=== PATIENT | female | born 1975 | race African-American/Black ===

== ENCOUNTER 2016-06-24 17:58 | Emergency (ER) | payer MEDICAID ==
[~2016-06-24] VITALS: Ht 170.2 cm; Wt 74.0 kg
[2016-06-24] MEDS ORDERED: ACETAMINOPHEN 325MG TABLET PO ONE (22:30)
[2016-06-24] MEDS ORDERED: CYCLOBENZAPRINE 10MG TABLET PO ONE (22:30)
[2016-06-24 22:37] LABS: BASOPHILS % 0.7 % (0.0-2.0); EOSINOPHILS % 4.1 % (0.0-5.0); HEMATOCRIT. 40.4 % (36.0-48.0); HEMOGLOBIN. 13.5 g/dL (12.0-16.0); LYMPHOCYTES % 50.3 % (20.0-50.0); MEAN CORPUSCULAR HEMOGLOBIN 29.1 pg (28.0-32.0); MEAN CORPUSCULAR HGB CONC 33.4 g/dL (31.0-37.0); MEAN CORPUSCULAR VOLUME 87.3 fL (81.0-99.0); MEAN PLATELET VOLUME 7.8 fl (7.4-10.4); MONOCYTES % 7.8 % (2.0-8.0); NEUTROPHILS % 37.1 % (40.0-76.0); PLATELET 311 x1000/uL (130-400); RED BLOOD CELL COUNT 4.63 mill/uL (4.2-5.4); RED CELL DISTRIBUTION WIDTH 13.5 % (11.6-14.6)
[2016-06-24 22:45] LABS: INR 1.1; PROTHROMBIN TIME 11.1 sec
[2016-06-24 22:45] LABS: CLARITY URINE CLEAR (CLEAR); COLOR URINE YELLOW (YELLOW); GLUCOSE URINE NEGATIVE (NEGATIVE); KETONES URINE NEGATIVE (NEGATIVE); LEUKOCYTE ESTERASE URINE TRACE (NEGATIVE); NITRITE URINE NEGATIVE (NEGATIVE); OCCULT BLOOD URINE 3+ (NEGATIVE); PH URINE 5.5 (4.5-8.0); PROTEIN URINE NEGATIVE (NEGATIVE); SPECIFIC GRAVITY URINE 1.017 (1.005-1.030); UROBILINOGEN URINE 0.2 E.U./dL (0.2-1.0)
[2016-06-24 22:51] LABS: ALANINE AMINOTRANSFERASE 23 IU/L (13-61); ANION GAP 11; CALCIUM 9.2 mg/dL (8.5-10.1); CARBON DIOXIDE 26 mEq/L (21-32); CHLORIDE 103 mEq/L (98-107); INDEX HEMOLYSI 1 (1-3); INDEX ICTERIC 1 (1-4); INDEX LIPEMIC 1 (1-3); LIPASE 136 IU/L (73-393); UREA NITROGEN BLOOD 9 mg/dL (7-21); eGFR > 60 mL/min (>60)
[2016-06-24 22:57] LABS: RBC URINE 50-100 /hpf (0-2)
[2016-06-24 22:58] LABS: BACTERIA URINE 2+; SQUAMOUS EPITHELIAL CELL URINE 2+ /lpf (RARE/1+)
[2016-06-25 00:25] VITALS: BP 112/70
== END 2016-06-25 00:48 | disposition home or self-care (01) ==
LOC: ER 22:58
DX: N39.0 Urinary tract infection, site not specified (principal); M54.5 Low back pain; M25.552 Pain in left hip; Z98.890 Other specified postprocedural states
CPT/HCPCS: 36415; 71010; 72100; 73502; 80053; 81001; 81025; 83690; 85025; 85610; 99285

== ENCOUNTER 2016-07-30 16:06 | Emergency (ER) | payer MEDICAID ==
[~2016-07-30] VITALS: Ht 172.7 cm; Wt 59.0 kg
[2016-07-30] MEDS ORDERED: SODIUM CHLORIDE 0.9% 1,000 ML IV ONE (21:39)
[2016-07-30] MEDS ORDERED: ACETAMINOPHEN 325MG TABLET PO ONE (21:45)
[2016-07-30] MEDS ORDERED: METOCLOPRAMIDE HCL 10MG/2ML VIAL IV ONE (22:15)
[2016-07-30 22:56] LABS: BASOPHILS % 0.5 % (0.0-2.0); EOSINOPHILS % 0.9 % (0.0-5.0); HEMATOCRIT. 39.8 % (36.0-48.0); HEMOGLOBIN. 13.3 g/dL (12.0-16.0); LYMPHOCYTES % 31.7 % (20.0-50.0); MEAN CORPUSCULAR HEMOGLOBIN 29.3 pg (28.0-32.0); MEAN CORPUSCULAR VOLUME 87.6 fL (81.0-99.0); MEAN PLATELET VOLUME 7.9 fl (7.4-10.4); MONOCYTES % 9.7 % (2.0-8.0); NEUTROPHILS % 57.2 % (40.0-76.0); PLATELET 291 x1000/uL (130-400); RED BLOOD CELL COUNT 4.54 mill/uL (4.2-5.4); RED CELL DISTRIBUTION WIDTH 13.9 % (11.6-14.6)
[2016-07-30 22:59] LABS: CLARITY URINE TURBID (CLEAR); COLOR URINE YELLOW (YELLOW); GLUCOSE URINE NEGATIVE (NEGATIVE); KETONES URINE 3+ (NEGATIVE); LEUKOCYTE ESTERASE URINE 3+ (NEGATIVE); NITRITE URINE NEGATIVE (NEGATIVE); OCCULT BLOOD URINE NEGATIVE (NEGATIVE); PH URINE 5.5 (4.5-8.0); PROTEIN URINE 1+ (NEGATIVE); SPECIFIC GRAVITY URINE 1.035 (1.005-1.030); UROBILINOGEN URINE 0.2 E.U./dL (0.2-1.0)
[2016-07-30 23:00] LABS: CHLORIDE 107 mEq/L (98-107)
[2016-07-30 23:09] LABS: CARBON DIOXIDE 23 mEq/L (21-32)
[2016-07-30] MEDS ORDERED: NITROFURANTOIN 100MG M/M CAPSULE PO ONE (23:15)
[2016-07-31 01:01] VITALS: BP 117/63
== END 2016-07-31 01:04 | disposition home or self-care (01) ==
LOC: ER 23:13
DX: O20.0 Threatened abortion (principal); O23.41 Unspecified infection of urinary tract in pregnancy, first trimester; O21.9 Vomiting of pregnancy, unspecified; Z3A.01 Less than 8 weeks gestation of pregnancy; R10.9 Unspecified abdominal pain; R11.2 Nausea with vomiting, unspecified
CPT/HCPCS: 36415; 76801; 76817; 80053; 81001; 81025; 84702; 85025; 96361; 96374; 99285; J2765; Z7610; J7030

== ENCOUNTER 2020-10-25 21:31 | Emergency (ER) | payer MEDICAID, OTHER ==
[~2020-10-25] VITALS: Ht 157.5 cm; Wt 77.5 kg
[2020-10-25] MEDS ORDERED: VISCOUS LIDOCAINE 2% 15 ML UDC PO STA (23:40)
[2020-10-25] MEDS ORDERED: MAGNESIUM/ALUMINUM HYDROXIDE/SIMETHICONE 30ML UDC PO STA (23:40)
[2020-10-25] MEDS ORDERED: ONDANSETRON 4MG ODT PO STA (23:40)
[2020-10-26 00:03] LABS: CLARITY URINE CLOUDY (CLEAR); COLOR URINE YELLOW (YELLOW); KETONES URINE 4+ (NEGATIVE); LEUKOCYTE ESTERASE URINE 2+ (NEGATIVE); NITRITE URINE NEGATIVE (NEGATIVE); OCCULT BLOOD URINE NEGATIVE (NEGATIVE); PROTEIN URINE TRACE (NEGATIVE); SPECIFIC GRAVITY URINE 1.025 (1.005-1.030); UROBILINOGEN URINE 0.2 E.U./dL (0.2-1.0)
[2020-10-26 00:20] LABS: BASOPHILS % 0.4 % (0.0-2.0); EOSINOPHILS % 1.3 % (0.0-5.0); HEMATOCRIT. 40.5 % (36.0-48.0); HEMOGLOBIN. 13.5 g/dL (12.0-16.0); LYMPHOCYTES % 26.7 % (20.0-50.0); MEAN CORPUSCULAR HEMOGLOBIN 27.7 pg (28.0-32.0); MEAN CORPUSCULAR VOLUME 83.3 fL (81.0-99.0); MEAN PLATELET VOLUME 7.9 fl (7.4-10.4); MONOCYTES % 7.4 % (2.0-8.0); NEUTROPHILS % 64.2 % (40.0-76.0); PLATELET 358 x1000/uL (130-400); RED BLOOD CELL COUNT 4.87 mill/uL (4.2-5.4); RED CELL DISTRIBUTION WIDTH 15.3 % (11.6-14.6)
[2020-10-26 00:30] LABS: CHLORIDE 104 mEq/L (98-107)
[2020-10-26 02:00] VITALS: BP 129/69
[2020-10-26] MEDS ORDERED: ONDA4TAB11 PO (02:03)
[2020-10-26] MEDS ORDERED: OMEP20TA2 MT (02:03)
[2020-10-26] MEDS ORDERED: NITR100C11 MT (02:03)
== END 2020-10-26 02:44 | disposition home or self-care (01) ==
LOC: ER 21:31
DX: N39.0 Urinary tract infection, site not specified (principal); K29.00 Acute gastritis without bleeding; R10.13 Epigastric pain
CPT/HCPCS: 36415; 76705; 80053; 81003; 81025; 83690; 85025; 87077; 87086; 93005; 99285; Q0162